=== PATIENT | female | born 1995 | race Hispanic/Latino ===

== ENCOUNTER 2020-01-29 11:16 | Emergency (ER) | payer SELFPAY ==
[~2020-01-29] VITALS: Ht 165.1 cm; Wt 59.9 kg
--- NOTE | 2020-01-29 11:36 | NUR ---
Used cultural link chart reader Stephanie Curry ID #[id number]
--- NOTE | 2020-01-29 11:38 | Emergency Department Note ---
History of Present Illnes History of Present Illness Chief Complaint: left eye pain History of Present Illness Patient is a 23-year-old female, with no significant past medical history, who presents with a 2 day history of left eye pain. She states that there feels like there is a "pinching" sensation. She denies any discharge from the eye and no crusting or matting, following sleep. She denies any visual changes, no blurred vision double vision or loss of visual steele. She denies wearing contact lenses, and she also does not wear glasses. She denies any trauma to the eye or previous ocular problems. 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;) Onset (how long ago): day(s) (2) Location: central chest, right frontal area Quality: see HPI Radiation: Reports non-radiation Severity: moderate Onset quality: sudden Duration (how long): day(s) (2) Timing of current episode: constant Progression: worsening Chronicity: new Context: Denies recent illness, Denies recent travel, Denies trauma/injury, Denies hx of DVT/PE Relieving factors: none Exacerbating factors: none Associated symptoms: Reports chest pain, Reports cough, Reports headaches, Reports loss of appetite, Reports nausea/vomiting, Reports weakness; Denies diaphoresis, Denies fever/chills, Denies rash, Denies shortness of breath Treatments prior to arrival: other (Tylenol - yesterday) Past Medical/Family History Physician Review I have reviewed the patient's past medical and family history. Any updates have been documented here. Past Medical History Recent Fever: No Clinical Suspicion of Infectio: Yes New/Unexplained Change in Ment: No Past Medical History: Asthma (as a child) Past Surgical History: None Social History Smoking Cessation: Never Smoker Alcohol Use: None Any Illegal Drug Use: No TB Exposure/Symptoms: No Physically hurt or threatened: No Family History Family history of heart diseas: No Other Any Pre-Existing Lines (PICC,: No Is patient up to date on immun: Yes Review of Systems Review of Systems Constitutional: Reports chills; Denies fever EENTM: Reports no symptoms, Reports eye pain (left); Denies blurred vision, Denies tearing, Denies double vision, Denies ear pain, Denies nose congestion, Denies throat pain, Denies other Cardiovascular: Denies edema, Denies palpitations, Denies syncope Respiratory: Denies chest congestion, Denies pain with cough, Denies dyspnea, Denies dyspnea on exertion Gastrointestinal: Denies abdominal pain, Denies constipation, Denies diarrhea Musculoskeletal: Reports no symptoms Integumentary: Reports no symptoms Psychological: Reports no symptoms Hematological/Lymphatic: Reports no symptoms Review of other systems: All other systems negative Physical Exam Related Data Allergies: Coded Allergies: No Known Allergies (Unverified , 01/29/20) Vital signs reviewed: Yes Physical Exam CONSTITUTIONAL Constitutional: Reports well-developed, Reports well-nourished; Denies ill appearing HENT HENT: Reports normocephalic, Reports atraumatic, Reports oropharynx clear/moist, Reports oropharynx normal, Reports nose normal; Denies nasal discharge, Denies nasal congestion, Denies oropharyngeal exudate, Denies tonsillar excudate HENT L/R: Reports left TM normal, Reports right TM normal, Reports left ext ear normal, Reports right ext ear normal EYES Eyes: Reports PERRL, Reports EOM normal, Reports lids normal, Reports other (injection of left sclera); Denies left eye discharge, Denies right eye discharge, Denies scleral icterus NECK Neck: Reports ROM normal PULMONARY Pulmonary: Reports effort normal, Reports breath sounds normal CARDIOVASCULAR Cardiovascular: Reports regular rhythm, Reports heart sounds normal, Reports capillary refill normal, Reports normal rate GASTROINTESTINAL Abdominal: Reports soft, Reports nontender GENITOURINARY SKIN Skin: Reports warm, Reports dry MUSCULOSKELETAL NEUROLOGICAL PSYCHOLOGICAL Psychological: Reports mood/affect normal, Reports behavior normal Procedures Foreign Body - Eye Time out performed: Yes Location: left eye Topical anesthetic: proparacaine Foreign body: other (No foreign body identified) Evidence of corneal penetratio: No Technique: irrigation Procedure performed under: direct, magnified visualization Post-procedure medication: ophthalmic antibiotic Patient tolerated procedure: well Additional comments Eye also examined using Fluorescein dye and Wood's Lamp. No cormeal abrasion. Assessment & Plan Medical Decision Making MDM Visual acuity performed: 20/20 OU - Discussed with patient, via rn wound care, that her eye symptoms may be due to allergies versus early infection. There was no sign of a corneal abrasion Patient was prescribed neomycin/polymyxin B/dexamethasone eyedrops to use to help with any inflammation or possible bacterial infection. Patient should follow-up if symptoms worsen. Patient was understanding of the plan. Assessment & Plan Final Impression: (1) Conjunctivitis (2) Left eye pain Depart Disposition: HOME, SELF-CARE ROSI SANCHEZ MD Jan 29, 2020 11:38
[2020-01-29] MEDS ORDERED: FLUORESCEIN SOD(OPTH) 1 MG STRP ONE (11:56)
[2020-01-29] MEDS ORDERED: FLUORESCEIN SOD(OPTH) 1 MG STRP OP ONE ×2 (12:00)
== END 2020-01-29 12:26 | disposition home or self-care (01) ==
LOC: FSED 11:16
DX: H57.12 Ocular pain, left eye (principal); H10.9 Unspecified conjunctivitis
CPT/HCPCS: 99283